=== PATIENT | male | born 1990 | race Caucasian/White ===

== ENCOUNTER → 2021-03-21 11:19 | Outpatient (BNVA) | payer OTHER, SELFPAY | PROVIDERS: Visit Provider Emergency Medicine | DX: I10 Essential (primary) hypertension (principal); R60.9 Edema, unspecified; Z82.41 Family history of sudden cardiac death | CPT/HCPCS: 80053; 80061; 83880; 84443; 85025 ==

== ENCOUNTER → 2022-06-03 13:39 | Outpatient (BNVA) | payer OTHER, SELFPAY | PROVIDERS: Visit Provider Nurse Practitioner Family | DX: M25.552 Pain in left hip (principal); Q65.89 Other specified congenital deformities of hip | CPT/HCPCS: 73502 ==

== ENCOUNTER → 2022-06-10 14:04 | Outpatient (BNVA) | payer OTHER, SELFPAY | PROVIDERS: PCP Family Medicine; Visit Provider Family Medicine | DX: I10 Essential (primary) hypertension (principal); Z13.220 Encounter for screening for lipoid disorders; Z13.6 Encounter for screening for cardiovascular disorders | CPT/HCPCS: 80053; 80061 ==

== ENCOUNTER → 2022-07-16 11:40 | Outpatient (BNVA) | payer OTHER, SELFPAY | PROVIDERS: PCP Family Medicine; Visit Provider Emergency Medicine | DX: E66.01 Morbid (severe) obesity due to excess calories (principal); Z68.41 Body mass index [BMI] 40.0-44.9, adult; M25.559 Pain in unspecified hip; M91.12 Juvenile osteochondrosis of head of femur [Legg-Calve-Perthes], left leg | CPT/HCPCS: 84443 ==

== ENCOUNTER → 2023-02-12 08:33 | Outpatient (BNVA) | payer OTHER, SELFPAY | PROVIDERS: PCP Family Medicine; Visit Provider Family Medicine | DX: I10 Essential (primary) hypertension (principal); E78.5 Hyperlipidemia, unspecified; M91.10 Juvenile osteochondrosis of head of femur [Legg-Calve-Perthes], unspecified leg; M91.12 Juvenile osteochondrosis of head of femur [Legg-Calve-Perthes], left leg; E78.2 Mixed hyperlipidemia; E66.01 Morbid (severe) obesity due to excess calories; Z68.41 Body mass index [BMI] 40.0-44.9, adult; Z72.0 Tobacco use | CPT/HCPCS: 80053; 80061 ==

== ENCOUNTER → 2023-03-16 11:28 | Outpatient (BNVA) | payer OTHER, SELFPAY | PROVIDERS: PCP Family Medicine; Visit Provider Specialist | DX: M91.12 Juvenile osteochondrosis of head of femur [Legg-Calve-Perthes], left leg | CPT/HCPCS: 73502 ==

== ENCOUNTER → 2023-06-24 16:44 | Outpatient (BNVA) | payer OTHER, SELFPAY | PROVIDERS: PCP Family Medicine; Referring Provider Family Medicine; Visit Provider Family Medicine | DX: M47.896 Other spondylosis, lumbar region (principal); M54.42 Lumbago with sciatica, left side; G89.29 Other chronic pain | CPT/HCPCS: 72100 ==

== ENCOUNTER 2023-07-20 06:00 | Outpatient (RCR) | payer OTHER, SELFPAY | END 2023-07-23 23:59 | disposition home or self-care (01) | LOC: MPT 06:00 | PROVIDERS: Visit Provider Emergency Medicine | DX: M91.10 Juvenile osteochondrosis of head of femur [Legg-Calve-Perthes], unspecified leg (principal) | CPT/HCPCS: 97110; 97162 ==

== ENCOUNTER 2023-07-24 06:00 | Outpatient (RCR) | payer OTHER, SELFPAY | END 2023-08-23 23:59 | disposition home or self-care (01) | LOC: MPT 06:00 | PROVIDERS: Visit Provider Emergency Medicine | DX: M91.10 Juvenile osteochondrosis of head of femur [Legg-Calve-Perthes], unspecified leg (principal); M54.59 Other low back pain | CPT/HCPCS: 97110; G0283 ==

== ENCOUNTER 2023-09-11 07:05 | Outpatient (CLI) | payer OTHER, SELFPAY ==
--- NOTE | 2023-09-11 07:15 | MR_ITS ---
WS: [id number] MRI LUMBAR SPINE NONCONTRAST HISTORY: M54.42 - Lumbago with sciatica, left side COMPARISON: None available. TECHNIQUE: Sagittal and axial multisequence imaging is submitted. Mild straightening of the normal lumbar lordosis. Very mild disc space narrowing at L5-S1. No fractures or marrow edema. Conus terminates normally at L1-2 disc level. L1-L2: Normal. L2-L3: Normal. L3-L4: Mild disc bulging. Mild disc encroachment upon the ventral thecal sac. There is very mild bila teral subarticular recess and foraminal narrowing. L4-L5: Mild osteophytic ridging and annular disc bulging. Moderate central disc protrusion deforming the thecal sac and narrowing the subarticular recesses. Slightly greater encroachment upon the RIGHT traversing L5 nerve root in the subarticular recess. There is mild central, bilateral subarticular re cess and foraminal stenosis. L5-S1: Large central disc protrusion asymmetric to the LEFT. Disc contacts the S1 nerve roots but gre atest on the LEFT. LEFT S1 nerve root is being displaced posteriorly. Disc extends into the LEFT fora gabbie and does also contact the LEFT exiting L5 nerve root. Moderate central with bilateral subarticul ar recess and mild to moderate foraminal stenosis. Paravertebral soft tissues are negative. IMPRESSION: 1. L5-S1: Large central disc protrusion asymmetric to the LEFT. Disc contacts the S1 nerve roots, gr eatest on the LEFT. Disc and facet disease resulting in moderate central with bilateral subarticular recess and mild to moderate foraminal stenosis. 2. L4-5: Central disc protrusion deform the thecal sac narrowing the subarticular recesses. Greatest encroachment upon the RIGHT traversing L5 nerve root. Mild central, bilateral subarticular recess an d foraminal stenosis. 3. No fracture or marrow edema.
== END 2023-09-11 07:06 | disposition home or self-care (01) ==
LOC: RAD 07:05
PROVIDERS: Visit Provider Family Medicine
DX: M54.42 Lumbago with sciatica, left side (principal); G89.29 Other chronic pain; R93.7 Abnormal findings on diagnostic imaging of other parts of musculoskeletal system; M51.27 Other intervertebral disc displacement, lumbosacral region; M48.061 Spinal stenosis, lumbar region without neurogenic claudication
CPT/HCPCS: 72148

== ENCOUNTER → 2023-09-24 17:04 | Outpatient (BNVA) | payer OTHER, SELFPAY | PROVIDERS: Visit Provider Orthopaedic Surgery | DX: M54.42 Lumbago with sciatica, left side (principal); G89.29 Other chronic pain; M48.062 Spinal stenosis, lumbar region with neurogenic claudication | CPT/HCPCS: 36415; 80053; 81003; 85025 ==

== ENCOUNTER 2023-10-02 06:20 | Day surgery (SDC) | payer OTHER, SELFPAY ==
[2023-10-02] VITALS (13 sets, daily range): BP systolic 104–142; BP diastolic 62–93; PULSE 74–90; RESP 14–18; TEMP 36.1–36.6; O2SAT 92–97; BMI 41.8
[2023-10-02] MEDS: sodium chloride 0.9% 1,000 ML 30 ML IV (07:31)
--- NOTE | 2023-10-02 08:17 | ANES.PREANE2 ---
Pre-Anesthetic Assessment Height/Weight: Height 1.8 m Weight 136.078 kg O2 Del Method Room Air 10/02/23 06:45 Preop Diagnosis: Disc herniation with radiculopathy due to lumbar 5 and sacral 1 Operation Date: 10/02/23 08:20 Proposed Procedures p Lumbar Spine Decompression(Not Applicable) - Moiz Galeana, Familial anesthetic complications: Violent after waking up, pulled out his ETT upon emergence, got fluid in [his] lungs and had to stay overnight. Was Beta Elvin taken within 24 hours: N/A Was Clonidine taken within 24 hours: N/A Last intake: Intake Last Liquid Date 10/01/23 Last Liquid Time 21:30 Last Solid Date 10/01/23 Last Solid Time 21:30 Social Tobacco and No alcohol Exam alert, oriented x 3, clear to auscultation bilaterally and regular rate & rhythm Redhead Airway Mallampati: Class IV Dentition: full CV/HEM Hypertension Metabolic Morbid Obesity Anesthetic Plan ASA status: 2 Anesthesia: General Risk of > 500 ml blood loss (7ml/kg in children): No Medications/Allergies Home Medications Medication Instructions Recorded Confirmed Last Taken Type gabapentin 300 mg capsule 300 mg PO BID PRN back pain 90 08/13/23 10/01/23 09/27/23 Rx days #90 caps lisinopril 20 2 tab PO DAILY 90 days #180 tabs 08/13/23 10/01/23 10/01/23 Rx mg-hydrochlorothiazide 12.5 mg tablet meloxicam 15 mg tablet 15 mg PO DAILY PRN pain 90 days 08/13/23 10/01/23 09/27/23 Rx #90 tabs methocarbamol 500 mg tablet 500 mg PO TID PRN back pain #90 08/13/23 10/01/23 09/26/23 Rx tabs Allergies Allergy/AdvReac Type Severity Reaction Status Date / Time No Known Allergies Allergy Verified 10/02/23 06:37 Current Medications Generic Name Dose Route Start Last Admin Trade Name Freq PRN Reason Stop Dose Admin Sodium Chloride 1,000 mls @ 30 mls/hr 10/02/23 07:30 10/02/23 07:31 Sodium Chloride 0.9% IV 10/03/23 07:29 30 mls/hr .Q24H SARKIS Administration PFSH Anesthesia Medical History Low back pain Smokeless tobacco use Family history of due to heart problem at 50 years of age or younger Peripheral edema HTN (hypertension) Family History Father CAD (coronary artery disease) Family/Other Diabetes Hypertension Mother Stroke Social History Smoking and tobacco/nicotine status: never used tobacco/nicotine Alcohol intake: current Alcohol intake frequency: holidays/special occasions only Substance/Drug Use: never Data Anesthesia Cardiac Studies: No Data to Display
--- NOTE | 2023-10-02 08:50 | W.PM.OPSUD ---
Surgery/Procedure H&P Update DATE OF PROCEDURE: October 02, 2023 DATE H&P PERFORMED: 09/25/23 H&P UPDATE INFORMATION: I have reviewed H&P completed within last 30 days, I have examined patient prior to procedure and No changes to prior documentation PREOP DIAGNOSIS: Disc herniation with radiculopathy due to lumbar 5 and sacral 1 PLANNED PROCEDURE: Operation Date: 10/02/23 08:20 Proposed Procedures p Lumbar Spine Decompression(Not Applicable) - Moiz Galeana DO
[2023-10-02] MEDS: ceFAZolin 2,000 MG in sodium chloride 0.9% (plus) 50 ML 100 MG IV (08:59)
[2023-10-02] MEDS: ceFAZolin 1,000 mg SDV 1000 MG IVP (08:59)
[2023-10-02] MEDS: lidocaine-epi 1% 20 mL INJ INJECTION (09:58)
--- NOTE | 2023-10-02 10:12 | PM.OP ---
Operative Report Date of procedure: October 02, 2023 Pre-op diagnosis: L5-S1 disc herniation with radiculopathy of S1 Post-op diagnosis: same Procedure done: L5-S1 laminectomy with partial facetectomy and discectomy Surgeon: Moiz Galeana DO Estimated blood loss (mL): 5 Procedure: L5-S1 laminectomy with partial facetectomy and discectomy Patient is brought to the operative suite. After undergoing anesthesia they are placed in the prone position. All areas of impingement are well padded. Patient is then prepped and draped in the normal sterile fashion. A skin incision is made over the L5-S1 level. This is confirmed under c-arm guidance. A series of dilators are passed and the tubular retractor is docked on the L5 lamina. A bovie is used to clear the soft tissue off the lamina and the L 5/S1 facet joint. A high speed rohan is then used to perform the laminectomy and take down the medial aspect of the L 5/S1 facet joint. A kerrison rongeure was then used to take down the remaining lamina and smooth the edge of the laminectomy up to the point where the ligamentum flavum attaches. Attention was then brought to the medial aspect of the facet joint. The remaining medial aspect of the superior and inferior aspect of the facet joint were taken down with the kerrison from the pedicle of L5 to S1. The facet joint had significant hypertrophy. Attention was then brought to the Ligamentum Flavum. The ligament was taken down from the lamina of L5 to S1 and out medially to the remaining facet joint. The ligament was thick. The dura was then exposed. The dura was in good repair. S1 nerve reflected medially. Microdiscectomy was performed using knife followed by micropituitary disc fragments were removed. And the S1 nerve roots were freed up. The L5 nerve was then traced with a curette out the L5/S1 foramen and found to be adequately decompressed. The S1 nerve was traced with a curette around the S1 pedicle. The lateral recess was opened with a kerrison helping to further decompress the S1 nerve. Wound is then irrigated copiously with saline and surgiflo is used to stop any bleeding. The tubular retractor is removed and the wound is closed with vicryl and monocryl suture. Glue is then used to protect the wound. A sterile dressing is then placed. Patient was then placed in the supine position and transferred to the PACU in stable condition.
[2023-10-02] MEDS: HYDROmorphone 1 mg/mL INJ 1 mL 0.5 MG IVP (10:49)
[2023-10-02] MEDS: HYDROcodone-acetaminophen 5-325 mg Tablet 1 TAB PO (11:14)
--- NOTE | 2023-10-02 12:00 | ANE.PACU2 ---
Inpatient post-anesthesia follow up: Airway intact: Yes Vital signs: Temperature 97.8 F Pulse Rate 83 Respiratory Rate 18 Blood Pressure 123/72 Pulse Oximetry 95 Oxygen Delivery Me thod Room Air Oxygen Flow Rate 10 Fraction of Inspir ed Oxygen Hydration adequate: Yes Nausea and vomiting: No Pain level: 1 Mental status: Baseline
--- NOTE | 2023-10-02 12:42 | XR_ITS ---
WS: [id number] Lumbar spine, C-arm fluoroscopy views, 10/02/2023 Clinical Data: or pic, decompression Comparison: Lumbar spine, 06/24/2023 Findings: Dr. Galeana performed lumbar decompression. XR/XR lumbar spine 1V [id number] Impression: Lumbar decompression.
== END 2023-10-02 12:11 | disposition home or self-care (01) ==
PROVIDERS: Visit Provider Orthopaedic Surgery
PROC: (CPT 63005; principal; 2023-10-02 08:10)
DX: M51.17 Intervertebral disc disorders with radiculopathy, lumbosacral region (principal)
CPT/HCPCS: 63030; 72020; 76000; J0330; J0690; J1100; J1170; J2250; J2405; J2704; J3010; J3490; J7030

== ENCOUNTER → 2024-06-21 10:05 | Outpatient (BNVA) | payer OTHER, SELFPAY | PROVIDERS: PCP Family Medicine; Visit Provider Family Medicine | DX: I10 Essential (primary) hypertension (principal); E78.2 Mixed hyperlipidemia | CPT/HCPCS: 80053; 80061 ==

== ENCOUNTER 2024-09-06 07:01 | Outpatient (CLI) | payer OTHER, SELFPAY ==
--- NOTE | 2024-09-06 08:18 | XRR_ITS ---
PROCEDURE INFORMATION: Exam: XR Lumbosacral Spine Exam date and time: 09/06/2024 8:29 AM Age: 33 years old Clinical indication: Low back pain; Prior surgery; Surgery date: 6+ months; Surgery type: Low back surgery in September 2023; Additional info: M48.062 - spinal stenosis, lumbar region with neurogenic. No history of recent trauma or surgery is provided. TECHNIQUE: Imaging protocol: Radiologic exam of the lumbosacral spine. 3image(s) are provided. Views: 2 or 3 views. COMPARISON: 1. MR lumbar spine wo con* [id number] 09/11/2023 7:22 AM. Lumbar radiograph report 10/02/2023. 2. CR XR lumbar spine 2-3V* [id number] 06/24/2023 4:55 PM FINDINGS: Bones/joints: No interval displaced fracture or dislocation is appreciated. Symmetric appearance of the sacral arcuate lines and sacroiliac junctions are appreciated. There appear to be some degenerative changes of the hips. There are degenerative appearing changes present including disc space narrowing most pronounced of the lumbosacral junction along with slightly lesser appearance of the L4-L5 level. There is some posterior element hypertrophy present. Soft tissues: No radiopaque foreign body or subcutaneous emphysema is appreciated. Other findings: No other significant interval changes are appreciated. XR/XR lumbar spine 2-3V* [id number] IMPRESSION: There are multilevel degenerative changes of the lumbar spine demonstrated with L5-S1 level predominance. If there is persistent pain or radicular-type symptoms then consider MRI.
== END 2024-09-06 07:02 | disposition home or self-care (01) ==
PROVIDERS: PCP Family Medicine; Visit Provider Family Medicine
DX: M48.062 Spinal stenosis, lumbar region with neurogenic claudication (principal); R93.7 Abnormal findings on diagnostic imaging of other parts of musculoskeletal system; M47.897 Other spondylosis, lumbosacral region; M47.896 Other spondylosis, lumbar region
CPT/HCPCS: 72100

== ENCOUNTER → 2024-09-08 13:30 | Outpatient (BNVA) | payer OTHER, SELFPAY | PROVIDERS: PCP Family Medicine; Visit Provider Orthopaedic Surgery | DX: M48.062 Spinal stenosis, lumbar region with neurogenic claudication (principal); M54.42 Lumbago with sciatica, left side; G89.29 Other chronic pain | CPT/HCPCS: 72100 ==